=== PATIENT | female | born 1960 | race Two or more races ===

== ENCOUNTER 2024-06-13 14:19 | Outpatient (RCR) | payer BC, SELFPAY ==
--- NOTE | 2024-06-13 14:43 | PT.OIERPT ---
PT OP Initial Eval Patient Information Outpatient Physical Therapy Treatment Date: 06/13/24 Visit Reasons: Vertigo Medical Diagnosis: H81.10 Treatment Dx #1: dizziness Start of Care: 06/13/24 Date of Onset: 2 months ago Smoking Status Smoking Status: Never smoker Initial Assessment Subjective: Pt is 63 yr old danish speaking female who c/o dizziness when she sits up in the morning and turns to the side. 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 PMH: allergies Pt goal: to get rid of the dizziness Objective: [place] to R: negative to the L: negative Smooth pursuit: WNL Visual tracking: WNL C/S ArOM: slight dizziness with extension and flexion but no significant ROM deficits. Sitting up: dizziness but negative nystagmus. Assessment: Pt didn't have positive BPPV testing today but rather had dizziness sitting up consistent with orthostatic hypotension. Pt's subjective report is consistent with BPPV but that wasn't provoked today. Pt may benefit from skilled therapy to continue to assess pt and to see if Nick maneuver helps. Short Term and Custodial Goals 1. Ind with HEP 2. Reduced dizziness ssx by 75% with supine to sit transfers 3. Pt will report 50% less onset of dizziness. Treatment Plan 1. Therex 2. Manual therapy including Nick maneuvers 3. Modalities as indicated Frequency and Duration: 1-2x a week for 12 visits Certification Dates: 06/13/24 to 08/11/24 Procedure Charges OP PT Eval Mod Complex 30 minutes: Yes
== END 2024-07-01 23:59 | disposition home or self-care (01) ==
LOC: CPTX 14:19
PROVIDERS: PCP Internal Medicine; Referring Provider Internal Medicine; Visit Provider Internal Medicine
DX: R42 Dizziness and giddiness (principal)
CPT/HCPCS: 97162